=== PATIENT | female | born 1945 | race Caucasian/White ===

== ENCOUNTER 2018-02-01 13:05 | Emergency (ER) | payer OTHER ==
[~2018-02-01] VITALS: Ht 172.7 cm; Wt 72.6 kg
[~2018-02-01 13:05] MED LIST: CATAFLAM50 MG PO; CYANOCOBALAMIN; CYMBALTA30 MG; OLEPTRO ER150 MG; OMEPRAZOLE20 M1; VASOTEC10 MG; WELLBUTRIN XL150 M1
== END 2018-02-01 20:48 | disposition home or self-care (01) ==
LOC: ER 13:05
DX: S60.212A Contusion of left wrist, initial encounter (principal); W18.39XA Other fall on same level, initial encounter; Y93.89 Activity, other specified; Y92.098 Other place in other non-institutional residence as the place of occurrence of the external cause; Y99.8 Other external cause status

== ENCOUNTER 2020-03-21 06:10 | Day surgery (SDC) | payer OTHER ==
[~2020-03-21 06:10] MED LIST changes: +CYMBALTA30 MG PO; +ENALAP PO; +NEURI PO; +OMEPRAZ PO; +TRAZO PO; +VITAMIN C100 MG PO; +WELLBUTRIN SR150 MG PO
== END 2020-03-21 12:40 | disposition home or self-care (01) ==
LOC: CIR.AMB 06:10
PROVIDERS: ATTEND Orthopaedic Surgery Sports Medicine
DX: M75.111 Incomplete rotator cuff tear or rupture of right shoulder, not specified as traumatic (principal); M75.41 Impingement syndrome of right shoulder; Z20.822 Contact with and (suspected) exposure to COVID-19

== ENCOUNTER 2022-05-28 06:24 | Day surgery (SDC) | payer OTHER ==
[~2022-05-28] VITALS: Ht 170.2 cm; Wt 68.9 kg
[~2022-05-28 06:24] MED LIST changes: +B-COMPLEX1 EACH PO
== END 2022-05-28 11:45 | disposition home or self-care (01) ==
LOC: CIR.AMB 06:24
PROVIDERS: ATTEND Anesthesiology Pain Medicine
DX: M99.73 Connective tissue and disc stenosis of intervertebral foramina of lumbar region (principal); M48.061 Spinal stenosis, lumbar region without neurogenic claudication; Z88.2 Allergy status to sulfonamides; Z20.822 Contact with and (suspected) exposure to COVID-19

== ENCOUNTER 2022-07-31 11:11 | Emergency (ER) | payer OTHER ==
[~2022-07-31] VITALS: Ht 172.7 cm; Wt 72.6 kg
[2022-07-31] MEDS ORDERED: NEURIN (11:22)
[2022-07-31] MEDS ORDERED: CEFUROXIME500 MG (11:23)
== END 2022-07-31 14:30 | disposition home or self-care (01) ==
LOC: ER 11:11
DX: S60.212A Contusion of left wrist, initial encounter (principal); S60.222A Contusion of left hand, initial encounter; W18.39XA Other fall on same level, initial encounter; Y93.89 Activity, other specified; Y92.89 Other specified places as the place of occurrence of the external cause; Y99.8 Other external cause status; Z88.2 Allergy status to sulfonamides

== ENCOUNTER 2023-12-20 06:38 | Day surgery (SDC) | payer OTHER ==
[2023-12-09 09:22] LABS: HEMOGLOBIN 13.7 g/dL (12.0-15.00); MEAN CELL VOLUME 97.6 fL (80.00-100.00); MEAN CORPUSCULAR HEMOGLOBIN 32.7 pg (27.00-32.0); MEAN CORPUSCULAR HGB CONC 33.5 g/dl (32.0-36.0); PLATELET COUNT 216 K/uL (150-450); RED CELL DISTRIBUTION WIDTH 12.6 % (11.5-14.5)
[2023-12-09 09:24] LABS: PH,URINE 5.5 (5.0-8.0); URINE APPEARANCE Clear; URINE BILIRRUBIN Negative (NEGATIVE); URINE BLOOD Negative; URINE COLOR Yellow; URINE GLUCOSE Negative (NEGATIVE); URINE KETONE Negative (NEGATIVE); URINE LEUKOCYTE Trace; URINE NITRATE Negative; URINE PROTEIN Negative (NEGATIVE); URINE UROBILINOGEN 0.2 E.U./dl
[2023-12-09 09:28] LABS: URINE BACTERIA 1557.2 uL (0.0-1933); URINE EPITHELIAL CELLS 46.2 uL (0.0-38.8); URINE WBC 23.1 uL (0.0-23.2)
[2023-12-09 09:35] VITALS: BP 110/73
[2023-12-09 09:45] LABS: INR < 0.93; PARTIAL THROMBOPLASTIN TIME 20.3 SECONDS (22.0-34.0)
[2023-12-09 09:49] LABS: URINE RBC 0.7 uL (0.0-20.8)
[2023-12-09 10:35] LABS: ALBUMIN 4.2 gm/dL (3.4-5.0); BILIRUBIN TOTAL 0.41 mg/dL (0.3-1.2); CALCIUM 9.8 mg/dL (8.5-10.1); CREATININE SERUM 0.74 mg/dL (0.55-1.02); GFR 75.9; GLOBULINA 3.3 G/DL (2.4-3.5); POTASSIUM 4.67 mEq/L (3.5-5.1); TOTAL PROTEIN 7.5 gm/dL (6.4-8.2)
[~2023-12-20] VITALS: Ht 170.2 cm; Wt 72.6 kg
[~2023-12-20 06:38] MED LIST changes: +CEFUROXIME500 MG; +ENALAPRIL; +LYRICA; +NEURIN
[2023-12-20] MEDS ORDERED: CEFAZOLIN SODIUM 1,000 MG VIAL IV ONE (14:30)
== END 2023-12-20 11:00 | disposition home or self-care (01) ==
LOC: CIR.AMB 06:38
PROVIDERS: ATTEND Surgery
DX: D21.6 Benign neoplasm of connective and other soft tissue of trunk, unspecified (principal); Z88.2 Allergy status to sulfonamides